=== PATIENT | female | born 1975 | race Caucasian/White ===

== ENCOUNTER → 2019-04-30 12:21 | Outpatient (CLI) | payer BC, SELFPAY ==
--- NOTE | ~2019-04-30 | XR_ITS ---
EXAMINATION: XR chest 2V EXAM DATE: 04/30/2019 12:59 INDICATION: Acute low respiratory infection. Cough. TECHNIQUE: Frontal and lateral projections of the chest obtained and reviewed. Comparison is made to prior examination from 11/03/2017. FINDINGS: The lungs are clear. There are no pleural effusions. The cardiomediastinal silhouette is within normal limits. There is no pneumothorax suspected. The bones and soft tissues are unremarkab le. IMPRESSION: No acute cardiopulmonary findings. Reviewed, dictated and finalized at location B. L [employer] WORK[employer]
== END ==
PROVIDERS: PCP Physician Assistant; Visit Provider Physician Assistant
DX: J22 Unspecified acute lower respiratory infection (principal)
CPT/HCPCS: 71046

== ENCOUNTER 2019-07-14 11:14 | Emergency (ER) | payer BC, SELFPAY ==
--- NOTE | ~2019-07-14 | XR_ITS ---
XR chest 2V DATE: 07/14/2019 12:01 INDICATION: Mid upper back pain radiating around right chest. No injury. TECHNIQUE: PA and lateral views COMPARISON: 04/26/2019 PA and lateral chest FINDINGS: Normal heart size. No hilar or mediastinal enlargement. No pulmonary infiltrate or consolid ation, pleural effusion or pulmonary vascular congestion or pneumothorax. Included skeletal structure s are normal. IMPRESSION: Negative Reviewed, dictated and finalized at location A. IMPRESSION: Negative
--- NOTE | ~2019-07-14 | CT_ITS ---
EXAMINATION: CTA chest PE protocol DATE: 07/14/2019 13:26 INDICATION: Right-sided chest pain radiating to back. Elevated d-dimer. TECHNIQUE: Computed tomography angiography (CTA) of the chest was performed with 100 mL Omnipaque-350 intravenous contrast timed to evaluate the pulmonary arteries. Coronal maximum intensity projection 3D-reconstructions were created by the technologist. Automated exposure control and iterative reconst ruction technique were employed. Exam dose: 526.34 mGy-cm total exam DLP. COMPARISON: 11/03/2017 CT pulmonary scan 07/24/2019 PA and lateral chest FINDINGS: There is moderate opacification of the pulmonary arteries and no evidence of pulmonary embo lism. No thoracic aortic aneurysm or dissection. Normal heart size. No pericardial or pleural effusion. No hilar or mediastinal mass lesion or lymphadenopathy. No pulmonary infiltrate or consolidation or pulmonary mass lesion is detected. Included upper abdominal structures skeletal structures are unremarkable. IMPRESSION: No evidence of pulmonary embolism Reviewed, dictated and finalized at Location A. Reviewed, dictated and finalized at location A.
[2019-07-14 11:21] VITALS: BP 144/90; PULSE 79; RESP 18; TEMP 37.7; O2SAT 100
[2019-07-14 11:28] VITALS: BP 143/78; PULSE 94; RESP 18; TEMP 37.7; O2SAT 99
[2019-07-14] MEDS: SODIUM CHLORIDE 0.9% IV 1,000 ML 999 ML IV CONT (11:56)
[2019-07-14 12:05] LABS: Basophils Percent Auto 0.6 % (0.2-1.2); Eosinophils Absolute Auto 0.1 K/mm3 (0-0.3); Eosinophils Percent Auto 0.9 % (0-4.4); Hematocrit 38.7 % (37.0-47.0); Immature Granulocyte Absolute 0.01 K/mm3 (0.00-0.031); Immature Granulocyte Percent A 0.2 % (0-0.5); Lymphocytes Percent Auto 50.9 % (18.3-44.2); Mean Corpuscular HGB Conc 33.6 g/dl (32-36); Mean Corpuscular Hemoglobin 28.6 pg (26-34); Mean Corpuscular Volume 85.2 fl (80-100); Mean Platelet Volume 9.2 fl (7.4-10.4); Monocytes Absolute Auto 0.6 K/mm3 (0.1-0.6); Monocytes Percent Auto 8.5 % (2.6-8.5); Neutrophils Absolute Auto 2.5 K/mm3 (1.3-6.7); Neutrophils Percent Auto 38.9 % (45.5-73.1); Platelet Count Result 223 k/mm3 (150-375); Red Blood Count 4.54 M/mm3 (4.2-5.4); Red Cell Distribution Width 13.2 % (11.5-14.5); White Blood Count 6.5 K/mm3 (4.5-10.0)
[2019-07-14 12:15] LABS: INR 1.1; Partial Thromboplastin Time 25.4 SECONDS (22.3-36.8); Prothrombin Time 13.8 Seconds (11.1-14.7)
--- NOTE | 2019-07-14 12:15 | ED.BACK ---
HPI - Back Pain/Injury General Chief Complaint: Back Pain/Injury <Mika Link PA-C Last Filed: 07/14/19 14:39> Stated Complaint: right flank pain <AYANNA Lizarraga Last Filed: 07/14/19 14:39> Time Seen by Provider: 07/14/19 11:16 <AYANNA Lizarraga Last Filed: 07/14/19 14:39> Source: patient <Mika AYANNA Lenz Last Filed: 07/14/19 14:39> Mode of arrival: ambulatory <AYANNA Lizarraga Last Filed: 07/14/19 14:39> Limitations: no limitations <Mika Link PA-C Dennys Filed: 07/14/19 14:39> History of Present Illness HPI Narrative: Patient is a 43-year-old female who presents to emergency department for evaluation of right mid thoracic back pain noted as a sharp pain for the last week denies injury or trauma worse with activity movement and lifting patient denies any dyspnea did recently get over an upper respiratory infection which has resolved. Patient denies radicular symptoms or paresthesias. Patient is taken ibuprofen with minimal improvement <Mika Link PA-C Last Filed: 07/14/19 14:39> Related Data Allergies/Adverse Reactions: Allergies Allergy/AdvReac Type Severity Reaction Status Date / Time No Known Allergies Allergy Verified 04/30/19 11:37 <Mika Link PA-C Dennys Last Filed: 07/14/19 14:39> Review of Systems Review of Systems: All systems reviewed & are unremarkable except as noted in HPI and below <iMka Link PA-C Last Filed: 07/14/19 14:39> [facility] Social History Social History: Social History (Reviewed 04/30/19 @ 11:38 by Ashlee Garcia [facility]) Smoking status: Never smoker Second hand tobacco smoke exposure: No Alcohol intake: never Substance use: never Substance use type: does not use Gender identity (if verbalized by the patient): Female <AYANNA Lizarraga Last Filed: 07/14/19 14:39> Course Vital Signs Vital signs: Vital Signs Temperature 99.9 F H 07/14/19 11:21 Pulse Rate 79 07/14/19 11:21 Respiratory Rate 18 07/14/19 11:21 Blood Pressure 144/90 H 07/14/19 11:21 Pulse Oximetry 100 07/14/19 11:21 Temperature 99.8 F H 07/14/19 11:28 Pulse Rate 72 07/14/19 14:44 Respiratory Rate 18 07/14/19 14:44 Blood Pressure 138/70 07/14/19 14:44 Pulse Oximetry 100 07/14/19 14:44 <Mika Link PA-C - Last Filed: 07/14/19 14:39> Vital Signs Temperature 99.9 F H 07/14/19 11:21 Pulse Rate 79 07/14/19 11:21 Respiratory Rate 18 07/14/19 11:21 Blood Pressure 144/90 H 07/14/19 11:21 Pulse Oximetry 100 07/14/19 11:21 Temperature 99.8 F H 07/14/19 11:28 Pulse Rate 72 07/14/19 14:44 Respiratory Rate 18 07/14/19 14:44 Blood Pressure 138/70 07/14/19 14:44 Pulse Oximetry 100 07/14/19 14:44 <Monse Cleveland MD - Last Filed: 07/14/19 16:27> MDM - Back Pain/Injury MDM Narrative Medical decision making narrative: Patients pain is positional in nature and localized to back without signs of cord compression or cauda equina based on neurological exam, skeletal exam and history. No fever or other significant factors to suggest osteomyelitis or spinal epidural abscess. No symptoms or signs to suggest pain is referred from abdominal or / cardiopulmonary sources. No pulsatile masses noted on exam. Patient ambulates with steady gait and is stable for outpatient management given case findings. Patient had PE ruled out in the emergency department <Mika Link PA-C - Last Filed: 07/14/19 14:39> Lab Data Result diagrams: : 07/14/19 11:57 07/14/19 11:57 <Mika Link PA-C - Last Filed: 07/14/19 14:39> Labs: Lab Results 07/14/19 07/14/19 07/14/19 Range/Units 11:57 11:57 11:57 WBC 6.5 (4.5-10.0) K/mm3 RBC 4.54 (4.2-5.4) M/mm3 Hgb 13.0 (12.0-15.0) g/dL Hct 38.7 (37.0-47.0) % MCV 85.2 (80-100) fl MCH 28.6 (26-34) pg
[2019-07-14 12:17] LABS: Alanine Aminotransferase 20 U/L (4-35); Albumin Level 4.3 g/dL (3.5-5.1); Alkaline Phosphatase 76 U/L (38-126); Aspartate Amino Transferase 30 U/L (14-36); Bilirubin,Total 0.4 mg/dL (0.2-1.3); Blood Urea Nitrogen 19 mg/dL (7-17); Calcium 8.8 mg/dL (8.4-10.2); Carbon Dioxide 26 mmol/L (22-30); Chloride 106 mmol/L (98-107); Estimated CRCL calculation 107 ml/min; Estimated Glomerular Filt Rate > 60; Glucose 109 mg/dL (65-105); Potassium 4.2 mmol/L (3.4-5.0); Sodium 139 mmol/L (137-145)
[2019-07-14 12:18] LABS: D Dimer 0.87 ug/mL (<0.48)
[2019-07-14 12:29] LABS: Add Urine Microscopic? NO; Appearance Urine Clear (Clear); Bilirubin Urine Negative (Negative); Blood Urine Negative (Negative); Color Urine Yellow (Yellow); Glucose Urine UA Negative (Negative); Ketones Urine Negative (Negative); Leukocyte Esterase Ur Negative LEU/UL (Negative); Nitrate Urine Negative (Negative); Protein Urine Negative (Negative); Specific Grav Ur 1.021 (1.001-1.035); Urobilinogen Urine Negative mg/dL (<2.0)
[2019-07-14] MEDS: KETOROLAC 30 MG/ML VIAL (*BKC) IV PUSH (14:13)
[2019-07-14] MEDS: DIAZEPAM 5 MG TABLET PO (14:13)
[2019-07-14 14:44] VITALS: BP 138/70; PULSE 72; RESP 18; O2SAT 100
== END 2019-07-14 14:45 | disposition home or self-care (01) ==
PROVIDERS: Emergency Medicine Emergency Medical Services; Emergency Provider Emergency Medicine; PCP Physician Assistant
DX: M54.6 Pain in thoracic spine (principal)
CPT/HCPCS: 36415; 71046; 71275; 80053; 81003; 81025; 85025; 85380; 85610; 85730; 96361; 96374; 96375; 99284; A9270; J0131; J1885; J7030; Q9967

== ENCOUNTER → 2019-12-03 12:37 | Outpatient (CLI) | payer BC, SELFPAY ==
--- NOTE | ~2019-12-03 | MM_ITS ---
EXAMINATION: MM screening [facility] BI w taye HISTORY: Screening mammogram TECHNIQUE: Craniocaudal and mediolateral oblique 3-D tomosynthesis images were obtained and synthetic 2-D images were generated. CAD analysis was submitted and interpreted. COMPARISON: 09/27/2018, 05/18/2017, 04/04/2017 BREAST PARENCHYMAL COMPOSITION: The breasts are heterogeneously dense, which may obscure small masses . FINDINGS: Stable focal asymmetry is noted in the posterior third of the inner right breast. There is no evidence of suspicious mass, calcification, or architectural distortion to suggest malignancy in e ither breast. There has been no suspicious interval change. IMPRESSION: 1. No mammographic evidence of malignancy. 2. Recommend routine screening mammography in one year. BI-RADS Category 2: Benign finding(s). Reviewed, dictated and finalized at location A.
== END ==
PROVIDERS: Visit Provider Obstetrics & Gynecology
DX: Z12.31 Encounter for screening mammogram for malignant neoplasm of breast (principal)
CPT/HCPCS: 77063; 77067

== ENCOUNTER 2020-01-30 13:14 | Outpatient (CLI) | payer BC, SELFPAY ==
--- NOTE | 2020-01-30 14:10 | ECG_ITS ---
Measurements Intervals [place] Rate: 78 P: 57 NC: 146 QRS: 53 QRSD: 92 T: 46 QT: 361 QTc: 413 Interpretive Statements SINUS RHYTHM WITH SINUS ARRHYTHMIA NORMAL ECG Electronically Signed On 01-30-2020 14:25:12 SUPERVISOR DEHYDROGENATION by Sheldon Ramirez D.O.
== END 2020-01-30 13:15 | disposition home or self-care (01) ==
LOC: ANHLAB 13:15
PROVIDERS: PCP Family Medicine; Visit Provider Physician Assistant
DX: R07.89 Other chest pain (principal)
CPT/HCPCS: 93005

== ENCOUNTER 2020-02-01 01:30 | Outpatient (CLI) | payer BC, SELFPAY ==
[2020-02-01 21:24] LABS: SARS-CoV-2 RNA PCR Negative
== END 2020-02-01 01:31 | disposition home or self-care (01) ==
LOC: ANHCOVIDDT 01:30
PROVIDERS: PCP Family Medicine; Visit Provider Internal Medicine Gastroenterology
DX: Z01.812 Encounter for preprocedural laboratory examination (principal); Z20.828 Contact with and (suspected) exposure to other viral communicable diseases
CPT/HCPCS: 87635; C9803; U0003

== ENCOUNTER 2020-02-04 00:55 | Day surgery (SDC) | payer BC, SELFPAY ==
[2020-01-23 13:20] VITALS: BMI 36.3
[2020-02-04 08:13] VITALS: BP 124/72; PULSE 88; RESP 20; TEMP 36.9; O2SAT 99; BMI 35.5
--- NOTE | 2020-02-04 08:21 | WPDGICN ---
Assessment and Plan Assessment and plan (1) Family history of colon cancer in father: Code(s): Z80.0 - Family history of malignant neoplasm of digestive organs Status: Acute Assessment and Plan: Patient's father had colon cancer. Plan is for surveillance colonoscopy now and at 5 year intervals in the future. GI Consult Note Consult date/time: 02/04/20 08:21 HPI: Temitope Merchant is a 44 year old female Presents for screening colonoscopy. Family history is significant that her father had colon cancer. Patient states that her own weight appetite bowel movements are normal. She is known to have a hemorrhoid. That will cause any cause rectal discomfort. She states that her bowel habits are normal. She denies abdominal pain. She has had no recent bleeding. Family history is significant her father had colon cancer. there is a question that her brother may have had colon polyps. Review of Systems Review of Systems: All systems reviewed & are unremarkable except as noted in HPI and below PMFSH Past Medical History Medical History (Updated 02/04/20 @ 08:23 by Bulmaro Daniels MD) Anxiety Conceived by in vitro fertilization Healthy adult Surgical History Surgical History deliv NOS-unsp H/O dilation and curettage History of endometrial ablation Tubal ligation status Family History Family History Mother DVT (deep venous thrombosis) Father Carcinoma of colon 47age Grandparent Diabetes mellitus Daughter , 4 mo. Trisomy 13 of fetus Social History Social History Smoking status: Never smoker Second hand tobacco smoke exposure: No Alcohol intake: never Substance use: never Substance use type: does not use Living arrangements: with family Gender identity (if verbalized by the patient): Female Spiritual care concerns: No Meds Home Medications and Allergies Home Medications Medication Instructions Recorded Confirmed Type multivitamin,xy-awes-[id number] 1 tablet PO DAILY 11/02/19 01/23/20 History Allergies Allergy/AdvReac Type Severity Reaction Status Date / Time grass pollen Allergy Intermediate cough, Verified 02/04/20 08:11 hoarseness Vital Signs Vital Signs - 24 hr 02/04/20 08:13 Temperature 98.4 F Pulse Rate 88 Respiratory Rate 20 Blood Pressure 124/72 Pulse Oximetry 99 Exam Narrative: Exam Narrative: Physical exam reveals patient be alert. Vital signs stable. HEENT exam unremarkable. Lungs are clear to auscultation and percussion. Heart is without murmur or extra sounds. Abdominal exam bowel sounds are present soft nontender with no organomegaly. Digital external rectal exam is normal.
[2020-02-04] MEDS: LACTATED RINGERS 1,000 ML 150 ML IV CONT (08:29)
--- NOTE | 2020-02-04 08:40 | WPDANESEPPF ---
Anes - Initial Pre Proc Eval Procedure: Operation Date: 02/04/20 09:30 Proposed Procedures p Screening Colonoscopy - Bulmaro Daniels MD Date/Time: 02/04/20 08:40 Surgeon: Bulmaro Daniels MD Pre Op Diagnosis: Neoplasm Screening, Fm Hx Of Colon CA Patient Data Age: 44 Gender: F Height: 5 ft 5 in Weight: 96.9 kg Last Vital Signs Temp 98.4 F 02/04/20 08:13 Pulse 88 02/04/20 08:13 Resp 20 02/04/20 08:13 BP 124/72 02/04/20 08:13 Pulse Ox 99 02/04/20 08:13 Allergies Allergy/AdvReac Type Severity Reaction Status Date / Time grass pollen Allergy Intermediate cough, Verified 02/04/20 08:11 hoarseness Home Medications Medication Instructions Recorded Confirmed Type multivitamin,tc-wzcv-vkaqxssy 1 tablet PO DAILY 11/02/19 01/23/20 History Patient hx anesthesia problems: none Family hx anesthesia problems: none PMFSH Past Medical History Medical History (Updated 02/04/20 @ 08:40 by eKvin Long MD) Anxiety Conceived by in vitro fertilization Healthy adult Hyperlipidemia Surgical History Surgical History deliv NOS-unsp H/O dilation and curettage History of endometrial ablation Tubal ligation status Family History Family History Mother DVT (deep venous thrombosis) Father Carcinoma of colon 47age Grandparent Diabetes mellitus Daughter , 4 mo. Trisomy 13 of fetus Social History Social History Smoking status: Never smoker Second hand tobacco smoke exposure: No Alcohol intake: never Substance use: never Substance use type: does not use Living arrangements: with family Gender identity (if verbalized by the patient): Female Spiritual care concerns: No Anes - Eval Final PreProcedure Day of Procedure 02/04/20 08:40 Patient weight: overweight Heart: regular rate and rhythm Lungs: clear to auscultation Airway: Mallampati scale class II Neurological: alert and oriented Last oral intake: >/= 8 hours ASA classification: II Emergent: no Anesthetic plan: proceed Anesthesia type and monitoring: general GIVS and standard monitoring Informed Consent: The patient's anesthetic plan and its attendant risks and benefits were discussed with the patient/family/POA. Questions were solicited and answers provided to the satisfaction of the patient/family/POA.
[2020-02-04 09:15] VITALS: BP 111/70; PULSE 77; RESP 18; O2SAT 100
[2020-02-04 09:25] VITALS: BP 121/78; PULSE 89; RESP 17; O2SAT 100
[2020-02-04 09:35] VITALS: BP 135/98; PULSE 93; RESP 18; O2SAT 100
== END 2020-02-04 09:42 | disposition home or self-care (01) ==
PROVIDERS: PCP Family Medicine; Visit Provider Internal Medicine Gastroenterology
PROC: 0DJD8ZZ Inspection of Lower Intestinal Tract, Via Natural or Artificial Opening Endoscopic (ICD-10-PCS; CPT 45378; principal; 2020-02-04 09:30)
DX: Z12.11 Encounter for screening for malignant neoplasm of colon (principal); K64.8 Other hemorrhoids; K63.5 Polyp of colon; Z80.0 Family history of malignant neoplasm of digestive organs
CPT/HCPCS: 45385; 88305; J2704; J7120

== ENCOUNTER → 2020-07-31 08:56 | Outpatient (CLI) | payer BC, SELFPAY ==
--- NOTE | ~2020-07-31 | XR_ITS ---
EXAMINATION: XR chest 2V DATE: 07/31/2020 09:13 INDICATION: Cough TECHNIQUE: PA and lateral views of the chest were obtained. COMPARISON: Chest radiograph and CT dated 07/14/2019 FINDINGS: The lungs remain clear with no focal airspace opacities, pulmonary edema, pleural effusion or pneumot horax. The cardiomediastinal silhouette is normal. Visualized bones and soft tissues are unremarkable . IMPRESSION: 1. No acute cardiopulmonary disease. Reviewed, dictated and finalized at location A.
== END ==
PROVIDERS: PCP Family Medicine; Visit Provider Family Medicine
DX: R05 Cough (principal)
CPT/HCPCS: 71046

== ENCOUNTER 2021-10-11 08:38 | Emergency (ER) | payer BC, SELFPAY ==
[2021-10-11 08:47] VITALS: BP 133/84; PULSE 91; RESP 16; TEMP 37.8; O2SAT 99
[2021-10-11 08:53] VITALS: BP 133/84; PULSE 91; RESP 16; TEMP 37.8; O2SAT 99
--- NOTE | 2021-10-11 08:58 | ED.URI ---
HPI - URI/Sore Throat General Chief Complaint: Upper Respiratory Infection Stated Complaint: Sore throat Time Seen by Provider: 10/11/21 08:58 Source: patient Mode of arrival: ambulatory Limitations: no limitations History of Present Illness HPI Narrative: 46 yo F presents with c/o sore throat, low grade fever, fatigue for 3 days. Symptoms getting progressively worse. Taking tylenol and ibuprofen to treat pain/fever. No N/V/D. No other symptoms. Hx of strep throat several times. No known exposure. All systems reviewed and negative except as noted above. Related Data Allergies Allergy/AdvReac Type Severity Reaction Status Date / Time grass pollen Allergy Intermediate cough, Verified 02/26/21 16:30 hoarseness codeine Allergy Unknown Nausea Verified 10/11/21 08:48 Review of Systems Review of Systems: CONSTITUTIONAL: Reports low-grade fever and fatigue. She denies chills, or sweats. EYES: Denies visual changes, redness, or discharge. ENT: Denies rhinorrhea, congestion. Reports sore throat. Denies otalgia. CARDIOVASCULAR: Denies chest pain, palpitations, or edema. RESPIRATORY: Denies cough or dyspnea. GASTROINTESTINAL: Denies abdominal pain, nausea, vomiting, or diarrhea. GENITOURINARY: Denies dysuria or hematuria. SKIN: Denies rash or itching. MUSCULOSKELETAL: Denies back pain, joint pain, or myalgia. NEUROLOGIC: Denies headache, numbness, or weakness. PSYCHIATRIC: Denies anxiety or depression. All other systems reviewed are negative, except as documented in HPI. [facility] Past Medical History Medical History Anxiety Conceived by in vitro fertilization Healthy adult Hyperlipidemia Surgical History Surgical History deliv NOS-unsp H/O dilation and curettage History of endometrial ablation Tubal ligation status Family History Family History (System 02/26/21 @ 16:30 by Tim Wong) Mother DVT (deep venous thrombosis) Father Carcinoma of colon 47age Grandparent Diabetes mellitus Daughter , 4 mo. Trisomy 13 of fetus Sibling Family history of alcoholism Father Carcinoma of colon Grandparent Family history of lung cancer Diabetes mellitus Social History Social History (System 02/26/21 @ 16:30 by Tim Wong) Smoking status: Never smoker Second hand tobacco smoke exposure: No Alcohol intake: never Substance use: never Substance use type: does not use Gender identity (if verbalized by the patient): Female Spiritual care concerns: No Comments At time of signature, agree with nursing past medical, surgical, social and family history. There is no relevant family history pertinent to the presenting complaint. Exam Narrative: GENERAL: This is a well-nourished, well-developed patient, in no apparent distress. HEAD: normocephalic, atraumatic. EYES: PERRL. Sclera clear/white. Vision is grossly intact. EARS: External ears normal, auditory canals clear and without drainage, TMs normal without perforation. Hearing grossly intact. NOSE: External nose normal with no obvious nasal discharge, nares without redness, no rhinorrhea. THROAT: Mucous membranes moist. Posterior pharynx erythematous and swollen. Tonsils erythematous, 2+ bilaterally, exudates. NECK: Neck supple, non-tender without lymphadenopathy, masses or thyromegaly. CARDIOVASCULAR: Regular rate and rhythm without murmurs, gallops, or rubs. RESPIRATORY: Clear to auscultation. Breath sounds equal bilaterally. No wheezes, rales, or rhonchi. SKIN: warm, Dry, intact with no suspicious lesions or rash, good texture and turgor. NEURO: awake, alert, and oriented to person, place and time. There were no obvious focal neurologic abnormalities. EXTREMITIES: No joint tenderness, effusion, or edema noted. Course Course Level of Care: Express Care Visit Vital Signs Kiera
== END 2021-10-11 09:21 | disposition home or self-care (01) ==
PROVIDERS: Emergency Provider Nurse Practitioner Family; PCP Family Medicine
DX: J02.9 Acute pharyngitis, unspecified (principal); E78.5 Hyperlipidemia, unspecified
CPT/HCPCS: 87081; 87880; 99213; G0463

== ENCOUNTER 2022-01-24 13:01 | Emergency (ER) | payer BC, SELFPAY ==
[2022-01-24 13:08] VITALS: BP 148/83; PULSE 88; RESP 16; TEMP 37.2; O2SAT 100
--- NOTE | 2022-01-24 13:35 | ED.EAR ---
HPI - Ear Problem General Chief complaint: Ear Stated complaint: rt esr drainage Time Seen by Provider: 01/24/22 13:21 Source: patient Mode of arrival: ambulatory Limitations: no limitations History of Present Illness HPI Narrative: patient presents today complaining of right ear pain for over a week. She had COVID-19 2.5 weeks ago and has had residual ear pain. She was seen by her PCP last week and was given a prescription for antibiotics, but they have not been providing relief. She has been taking Sudafed, Flonase, and Ashley without relief as well. Related Data Home Medications Medication Instructions Recorded Confirmed omeprazole 40 mg capsule,delayed mg 01/24/22 release Allergies Allergy/AdvReac Type Severity Reaction Status Date / Time grass pollen Allergy Intermediate cough, Verified 01/24/22 13:07 hoarseness codeine Allergy Unknown Nausea Verified 01/24/22 13:07 Review of Systems Review of Systems: CONSTITUTIONAL: Denies body aches, fever, chills, or sweats. EYES: Denies visual changes, redness, or discharge. ENT: Denies rhinorrhea, congestion, sore throat. + Right ear pain CARDIOVASCULAR: Denies chest pain, palpitations, or edema. RESPIRATORY: Denies cough or dyspnea. GASTROINTESTINAL: Denies abdominal pain, nausea, vomiting, or diarrhea. GENITOURINARY: Denies dysuria or hematuria. SKIN: Denies rash, itching, or wounds. MUSCULOSKELETAL: Denies back pain, joint pain, or myalgia. NEUROLOGIC: Denies headache, numbness, tingling, or weakness. PSYCH: Denies depression or anxiety. [facility] Past Medical History Medical History Anxiety Conceived by in vitro fertilization Healthy adult Hyperlipidemia Surgical History Surgical History deliv NOS-unsp H/O dilation and curettage History of endometrial ablation Tubal ligation status Family History Family History Mother DVT (deep venous thrombosis) Father Carcinoma of colon 47age Grandparent Diabetes mellitus Daughter , 4 mo. Trisomy 13 of fetus Sibling Family history of alcoholism Father Carcinoma of colon Grandparent Family history of lung cancer Diabetes mellitus Social History Social History Smoking status: Never smoker Second hand tobacco smoke exposure: No Alcohol intake: never Substance use: never Substance use type: does not use Gender identity (if verbalized by the patient): Female Spiritual care concerns: No Comments At time of signature, I have reviewed and agree with nursing past medical, surgical, social and family history unless otherwise noted. Please see nursing chart for further information. There is no relevant family history pertinent to the presenting complaint Exam Narrative: GENERAL: Well-appearing, well-nourished, and in no acute distress. HEAD: Normocephalic, atraumatic. EYES: EOMI. No redness or drainage. Conjunctivae normal. ENT: Mucous membranes pink and moist. Nares clear. No rhinorrhea. bilateral cerumen impactions, right greater than left. Throat normal. Uvula midline. NECK: Normal AROM. Supple. No lymphadenopathy. CHEST: No respiratory distress. Clear to auscultation. HEART: Regular rate and rhythm. No murmur appreciated. Normal peripheral pulses. EXTREMITIES: Normal range of motion. No edema. SKIN: Warm, dry, no rash. Capillary refill normal. Normal skin turgor. NEURO: No focal deficits. Alert and oriented x3. Gait steady. PSYCH: Normal affect. No signs of depression or anxiety. Course Course Level of Care: Express Care Visit Vital Signs Vital signs: Vital Signs Temperature 98.9 F 01/24/22 13:08 Pulse Rate 88 01/24/22 13:08 Respiratory Rate 16 01/24/22 13:08 Bl
== END 2022-01-24 14:20 | disposition home or self-care (01) ==
PROVIDERS: Emergency Provider Nurse Practitioner; PCP Family Medicine
DX: H61.23 Impacted cerumen, bilateral (principal); J40 Bronchitis, not specified as acute or chronic; E78.5 Hyperlipidemia, unspecified
CPT/HCPCS: 69209; 99213; A9270; G0463